=== PATIENT | male | born 1960 | race Caucasian/White ===

== ENCOUNTER 2024-01-03 23:17 | Emergency (ER) | payer BC, SELFPAY ==
[2024-01-03 23:21] VITALS: BP 146/89; PULSE 66; RESP 18; TEMP 36.6; O2SAT 94; BMI 32.1
--- NOTE | 2024-01-03 23:32 | ED_ITS ---
HPI - Abdominal Pain 2 General: Chief Complaint: Abdominal Pain Stated Complaint: abd pain Time Seen by Provider: 01/03/24 23:25 History of Present Illness: 63-year-old male with history of hyperte nsion and kidney stones who presents to the sick room with right flank pain and now right lower quadrant abdominal pain. No known fevers. No dysuria. This started earlier today. He has had some nausea and vomiting. Related Data Home Medications Medication Instructions Recorded Confirmed lisinopril 10 mg tablet 10 mg PO DAILY 09/21/21 09/25/22 Previous Rx's Medication Instructions Recorded tamsulosin 0.4 mg capsule (Flomax) 0.4 mg PO DAILY #14 caps 09/25/22 cephalexin 500 mg capsule 500 mg PO BID 5 days #10 caps 01/04/24 diclofenac sodium 50 mg 50 mg PO BID PRN pain #14 tabs 01/04/24 tablet,delayed release ondansetron 4 mg disintegrating 4 mg PO Q8H PRN nausea and 01/04/24 tablet vomiting #10 tabs Allergies Allergy/AdvReac Type Severity Reaction Status Date / Time No Known Allergies Allergy Verified 09/25/22 09:24 Review of Systems 2 Narrative: Constitutional symptoms: Negative except as documented in HPI. Skin symptoms: Negative except as documented in HPI. Eye symptoms: Negative except as documented in HPI. ENMT symptoms: Negative except as documented in HPI. Respiratory symptoms: Negative except as documented in HPI. Cardiovascular symptoms: Negative except as documented in HPI. Gastrointestinal symptoms: Negative except as documented in HPI. Genitourinary symptoms: Negative except as documented in HPI. Musculoskeletal symptoms: Negative except as documented in HPI. Neurologic symptoms: Negative except as documented in HPI. Psychiatric symptoms: Negative except as documented in HPI. Endocrine symptoms: Negative except as documented in HPI. PFSH ED 2 PFSH: Social History Smoking and tobacco/nicotine status: never used tobacco/nicotine Physical Exam 2 Narrative: EXAM NARRATIVE: General: Alert, patient is considerable pain on presentation. Skin: Warm, dry. Head: Normocephalic, atraumatic. Neck: Supple, trachea midline. Eye: Extraocular movements are intact. Ears, nose, mouth and throat: mucosa moist. Cardiovascular: Regular, Normal peripheral perfusion. Respiratory: Lungs are clear to auscultation, respirations are non-labored, breath sounds are equal, Symmetrical chest wall expansion. Gastrointestinal: Soft, right lower quadrant abdominal pain radiating into groin, Non distended Musculoskeletal: Normal ROM, no deformity. Neurological: Alert and oriented, No focal neurological deficit observed. Psychiatric: Cooperative, appropriate mood & affect. Course 2 Vital Signs: Vital signs: Vital Signs Temperature 98 F 01/03/24 23:21 Pulse Rate 66 01/03/24 23:21 Respiratory Rate 18 01/03/24 23:21 Blood Pressure 146/89 01/03/24 23:21 Pulse Oximetry 94 01/03/24 23:21 MDM - Abdominal Pain Medical Decision Making Medical decision making: Differential diagnosis including but not limited to and based on the above HPI, review of systems and physical exam: Ureterolithiasis. Urinary tract infection. Appendicitis. Cholecystis. Musculoskeletal / back pain. Pyelonephritis Orders placed to evaluate differential diagnosis based on the above differential, HPI and physical exam Lab Review: Laboratory results were reviewed and interpreted by myself the emergency room physician. Mild leukocytosis with a white count 15. No anemia. Renal function is mildly elevated at [address] of the abdomen pelvis without contrast. Patient has a distal right 3 mm ureter with some hydro-. Also concern for some perinephric edema. Patient has had no fever but I am placing him on antibiotics for this. I reviewed the patient's medical record. Reexamination: Patient is completely pain-free on discharge. He said Toradol helped greatly. No altered mental status. No focal motor deficits. No further vomiting. We discussed follow-up with urology. Assessment and plan: Ureterolithiasis ?Toradol and Zofran given IV here in the emergency room. - Discharged home - Discussed findings and plan with patient. Answered any questions. - All laboratory values were reviewed and interpreted personally by myself, the ER physician - All imaging was reviewed and interpreted personally by myself, the ER physician. - Evaluation and treatment of this problem were appropriate in the emergency setting Lab Data 01/03/24 23:38 01/03/24 23:38 Labs/Radiology: Radiology Impressions Abdomen/Pelvis CT 01/04/24 23:28 IMPRESSION: 1. Right distal ureter 3.1 mm calculus with moderate hydronephrosis and hydroureter with perinephric edema, please correlate for pyelonephritis. 2. Diverticulosis without diverticulitis. 3. Prostate gland enlarged, please correlate clinically. 4. Cholelithiasis. 5. Left lower lobe atelectasis. Laboratory Results WBC 14.92 10^3/uL (3.29-11.43) H 01/03/24 23:38 RBC 5.46 10^6/uL (3.85-5.65) 01/03/24 23:38 Hgb 15.60 g/dL (11.27-16.99) 01/03/24 23:38 Hct 46.3 % (37-53) 01/03/24 23:38 MCV 84.8 fl (82-101) 01/03/24 23:38 MCH 28.6 pg (27-33) 01/03/24 23:38 MCHC 33.7 g/dL (30-55) 01/03/24 23:38 RDW 13.3 % (12.1-15.1) 01/03/24 23:38 Plt Count 247 10^3/cmm (157-399) 01/03/24 23:38 MPV 8.5 fL (7.4-10.4) 01/03/24 23:38 Neut % (Auto) 76.3 % 01/03/24 23:38 Lymph % (Auto) 12.7 % 01/03/24 23:38 [place] % (Auto) 9.7 % 01/03/24 23:38 Eos % (Auto) 0.0 % 01/03/24 23:38 Baso % (Auto) 0.3 % 01/03/24 23:38 Neut # (Auto) 11.39 10^3/uL (1.8-7.7) H 01/03/24 23:38 Lymph # (Auto) 1.9 10^3/uL (0.8-4.8) 01/03/24 23:38 [place] # (Auto) 1.4 10^3/uL (0.2-0.9) H 01/03/24 23:38 Eos # (Auto) 0.0 10^3/uL (0.0-0.8) 01/03/24 23:38 Baso # (Auto) 0.1 10^3/uL (0.0-0.1) 01/03/24 23:38 Nucleated RBC % (auto) 0 % 01/03/24 23:38 Nucleated RBCs # 0.0 /100WBC 01/03/24 23:38 Sodium 135 mmol/L (136-145) L 01/03/24 23:38 Potassium 4.3 mmol/L (3.5-5.1) 01/03/24 23:38 Chloride 98 mmol/L (98-107) 01/03/24 23:38 Carbon Dioxide 26 mmol/L (22-29) 01/03/24 23:38 Anion Gap 15.3 (5-19) 01/03/24 23:38 BUN 14 mg/dL (8-23) 01/03/24 23:38 Creatinine 1.1 mg/dL (0.7-1.2) 01/03/24 23:38 GFR Calculation 68.1 mL/min (90-130) L 01/03/24 23:38 Glucose 134 mg/dL (65-115) H 01/03/24 23:38 Calculated Osmolality 282 mOsm/kg (285-295) L 01/03/24 23:38 Calcium 8.9 mg/dL (8.5-10.5) 01/03/24 23:38 Total Bilirubin 0.3 mg/dL (0.15-1.2) 01/03/24 23:38 AST 22 U/L (0-40) 01/03/24 23:38 ALT 21 U/L (0-41) 01/03/24 23:38 Alkaline Phosphatase 84 U/L (40-130) 01/03/24 23:38 Total Protein 7.3 g/dL (6.6-8.7) 01/03/24 23:38 Albumin 4.3 g/dL (3.5-5.2) 01/03/24 23:38 Globulin 3.0 g/dL (1.3-4.6) 01/03/24 23:38 Urine Color Yellow (Yellow) 01/04/24 00:41 Urine Appearance Clear (CLEAR) 01/04/24 00:41 Urine pH 5.5 (5-7) 01/04/24 00:41 Ur Specific [place] 1.024 (1.005-1.030) 01/04/24 00:41 Urine Protein Negative (Negative) 01/04/24 00:41 Urine Glucose (UA) Negative (Normal) 01/04/24 00:41 Urine Ketones Negative (Negative) 01/04/24 00:41 Urine Blood 1+ (Negative) A 01/04/24 00:41 Urine Nitrate Negative (Negative) 01/04/24 00:41 Urine Bilirubin Negative (Negative) 01/04/24 00:41 Urine Urobilinogen 1.0 mg/dL (Negative) 01/04/24 00:41 Ur Leukocyte Esterase Trace (Negative) A 01/04/24 00:41 Urine RBC 11-20 /hpf (0-2) H 01/04/24 00:41 Urine WBC 0-5 /hpf (0-5) 01/04/24 00:41 Ur Squamous Epith Cells 0-5 /hpf (0-5) 01/04/24 00:41 Amorphous Sediment Not Reportable 01/04/24 00:41 Urine Bacteria None seen /hpf (NONE) 01/04/24 00:41 Hyaline Casts 0-4 /lpf H 01/04/24 00:41 All radiology interpretation(s) finalized by discharge Discharge Plan Discharge Patient Disposition: Home Clinical Impression: Ureterolithiasis Condition: Stable Prescriptions: New cephalexin 500 mg capsule 500 mg PO BID 5 Days Qty: 10 0RF diclofenac sodium 50 mg tablet,delayed release (DR/EC) 50 mg PO BID PRN (Reason: pain) Qty: 14 0RF ondansetron 4 mg tablet,disintegrating 4 mg PO Q8H PRN (Reason: nausea and vomiting) Qty: 10 0RF No Action lisinopril 10 mg tablet 10 mg PO DAILY tamsulosin [Flomax] 0.4 mg capsule 0.4 mg PO DAILY Qty: 14 0RF Discharge Orders: Discharge ED (Routine); Ordered 01/04/24 Ordered By: Eunice Patel Referrals: Cedrick Heller [Referring] - 4-7 days (Please call for a follow-up appointment with urology.) Discharge Diet: Usual diet Discharge Activity: Increase activity as tolerated Patient Instructions: Kidney Stones (ED), Opioid Safety, Pain Management Activity Restrictions/Additional Instructions: Call for appointment with urology. If fever (temp >100.4) develops return to the emergency room immediately, as this is an emergency. Take nausea medication prior to taking pain medications. Thank you for choosing [facility] for your healthcare needs today. Please realize this is an emergency room and that we are providing you with a medical screening exam and this may not be complete and all inclusive of all the testing and or work up that you may need to determine your ailment or severity of your illness. You have been screened and evaluated and felt safe for discharge. Health conditions do change or evolve sometimes and as such it is important that you follow up with your Primary Doctor to be re checked, 3-5 days is a general good time frame for follow up. You are always welcome to return to the ED for re assessment if your symptoms are worsening or you have new concerns Coding Level of Care Code ED [employer] Professor for Doron Salcido
[2024-01-03] MEDS: ketorolac 30 mg/mL INJ IVP (23:37)
[2024-01-03] MEDS: ondansetron 2 mg/ML SDV 2 mL 8 MG IVP (23:38)
[2024-01-03 23:44] LABS: Basophils # 0.1 10^3/uL (0.0-0.1); Basophils % 0.3 %; Hematocrit 46.3 % (37-53); Lymphocytes # 1.9 10^3/uL (0.8-4.8); Lymphocytes % 12.7 %; Mean Corpuscular HGB Conc 33.7 g/dL (30-55); Mean Corpuscular Hemoglobin 28.6 pg (27-33); Mean Corpuscular Volume 84.8 fl (82-101); Mean Platelet Volume 8.5 fL (7.4-10.4); Monocytes # 1.4 10^3/uL (0.2-0.9); Monocytes % 9.7 %; Neutrophils # 11.39 10^3/uL (1.8-7.7); Neutrophils % 76.3 %; Nucleated Red Blood Cells % 0 %; Platelet Count 247 10^3/cmm (157-399); Red Blood Count 5.46 10^6/uL (3.85-5.65); Red Cell Distribution Width 13.3 % (12.1-15.1); White Blood Count 14.92 10^3/uL (3.29-11.43)
[2024-01-04 00:02] LABS: Alanine Aminotransferase 21 U/L (0-41); Albumin Level 4.3 g/dL (3.5-5.2); Alkaline Phosphatase 84 U/L (40-130); Anion Gap 15.3 (5-19); Aspartate Amino Transferase 22 U/L (0-40); Blood Urea Nitrogen 14 mg/dL (8-23); Calcium 8.9 mg/dL (8.5-10.5); Carbon Dioxide 26 mmol/L (22-29); Chloride 98 mmol/L (98-107); Creatinine Clr Calc Pharmacy 86.6909; Glomerular Filtration Rate 68.1 mL/min (90-130); Glucose 134 mg/dL (65-115); Osmolality Calculated 282 mOsm/kg (285-295); Potassium 4.3 mmol/L (3.5-5.1); Sodium 135 mmol/L (136-145); Total Bilirubin 0.3 mg/dL (0.15-1.2); Total Protein 7.3 g/dL (6.6-8.7)
[2024-01-04 00:57] LABS: Bilirubin Urine Negative (Negative); Blood Urine 1+ (Negative); Glucose Urine UA Negative (Normal); Ketones Urine Negative (Negative); Leukocyte Esterase Urine Trace (Negative); Nitrate Urine Negative (Negative); Protein Urine Negative (Negative); Specific Gravity, Urine 1.024 (1.005-1.030); Urine Appearance Clear (CLEAR); Urine Color Yellow (Yellow); pH Urine 5.5 (5-7)
[2024-01-04] MEDS: cefTRIAXone 1,000 mg SDV 1000 MG IVP (00:59)
[2024-01-04 01:00] LABS: Bacteria Urine None Seen /hpf; Hyaline Casts Urine 0-4 /lpf; Squamous Epithelial Cell Urine 0-5 /hpf (0-5); WBC Urine 0-5 /hpf (0-5)
[2024-01-04 01:58] VITALS: BP 124/80; PULSE 84; O2SAT 97
--- NOTE | 2024-01-04 23:28 | CTR_ITS ---
PROCEDURE INFORMATION: Exam: CT Abdomen And Pelvis Without Contrast Exam date and time: 01/04/2024 12:00 AM Age: 63 years old Clinical indication: Nausea and vomiting; Additional info: Flank pain TECHNIQUE: Imaging protocol: Computed tomography of the abdomen and pelvis without contrast. Radiation optimization: All CT scans at this facility use at least one of these dose optimization techniques: automated exposure control; mA and/or kV adjustment per patient size (includes targeted exams where dose is matched to clinical indication); or iterative reconstruction. COMPARISON: No relevant prior studies available. RADIATION DOSE METRICS: Total DLP (mGy-cm): 1042.85 FINDINGS: Lungs: Left lower lobe atelectasis. Liver: Normal. No mass. Gallbladder and biliary ducts: Cholelithiasis. Pancreas: Normal. No ductal dilation. Spleen: Normal. No splenomegaly. Adrenal glands: Normal. No mass. Kidneys and ureters: Right distal ureter 3.1 mm calculus with moderate hydronephrosis and hydroureter with perinephric edema, please correlate for pyelonephritis. Stomach and bowel: Diverticulosis without diverticulitis. Appendix: No evidence of appendicitis. Intraperitoneal space: Unremarkable. No free air. No significant fluid collection. Vasculature: Unremarkable. No abdominal aortic aneurysm. Lymph nodes: Unremarkable. No enlarged lymph nodes. Urinary bladder: Unremarkable as visualized. Reproductive: Prostate gland enlarged, please correlate clinically. Bones/joints: Unremarkable. No acute fracture. Soft tissues: Unremarkable. CT/CT abdomen pelvis wo con [id number] IMPRESSION: 1. Right distal ureter 3.1 mm calculus with moderate hydronephrosis and hydroureter with perinephric edema, please correlate for pyelonephritis. 2. Diverticulosis without diverticulitis. 3. Prostate gland enlarged, please correlate clinically. 4. Cholelithiasis. 5. Left lower lobe atelectasis.
== END 2024-01-04 02:00 | disposition home or self-care (01) ==
PROVIDERS: Emergency Provider Emergency Medicine
DX: N20.1 Calculus of ureter (principal)
CPT/HCPCS: 74176; 80053; 81001; 85025; 96374; 96375; 99285; J0696; J1885; J2405

== ENCOUNTER 2024-02-04 10:05 | Outpatient (CLI) | payer BC, SELFPAY ==
--- NOTE | 2024-02-04 10:09 | US_ITS ---
WS: [id number] ULTRASOUND RENAL TECHNIQUE: Ultrasound examination of both kidneys. CLINICAL INFORMATION: HYDRONEPHROSIS OF R KIDNEY COMPARISON: CT 01/26 FINDINGS: Previously described RIGHT hydronephrosis has resolved. RIGHT: Right kidney is normal in size and appearance. Echogenicity: Normal. Cortical thickness: 1.1 cm; Normal. Hydronephrosis: None. Perinephric fluid: None. Right kidney measures: 11.2 cm x 5.7 cm x 5.2 cm. LEFT: Left kidney is normal in size and appearance. Echogenicity: Normal. Cortical thickness: 1.2 cm; Normal. Hydronephrosis: None. Perinephric fluid: None. Left kidney measures: 11.5 cm x 6.4 cm x 5.8 cm. Normal visualized aorta. Enlarged nodular prostate. US/US renal BI* [id number] IMPRESSION: 1. Enlarged nodular prostate measuring 4.5 x 5.4 cm. Recommend correlation PSA . 2. Previously described RIGHT hydronephrosis has resolved. 3. No hydronephrosis in the LEFT kidney.
== END 2024-02-04 10:06 | disposition home or self-care (01) ==
LOC: RAD 10:07
PROVIDERS: PCP Family Medicine; Visit Provider Nurse Practitioner Family
DX: N13.30 Unspecified hydronephrosis (principal); N40.0 Benign prostatic hyperplasia without lower urinary tract symptoms
CPT/HCPCS: 76770